=== PATIENT | female | born 2000 | race Caucasian/White ===

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

== ENCOUNTER 2022-10-22 08:13 | Emergency (ER) | payer BC ==
[2022-10-22 08:24] VITALS: BMI 17.4
[2022-10-22] MEDS ORDERED: SODIUM CHLORIDE 1,000 ML IV STA (08:36)
[2022-10-22 09:31] LABS: BASO % 0.3 % (0-2.0); EOS % 3.1 % (0-4.5); HEMATOCRIT 38.7 % (32.4-45.2); HEMOGLOBIN 13.4 GM/dL (10.7-15.3); LYMPH % 30.7 % (8-40); MCH 32.5 pg (25.7-33.7); MCHC 34.6 g/dl (32.0-36.0); MEAN CELL VOLUME 93.9 fl (80-96); MONO % 7.4 % (3.8-10.2); NEUT % 58.5 % (42.8-82.8); PLATELET COUNT 265 10^3/uL (134-434); RBC 4.12 M/mm3 (3.60-5.2); RDW 12.8 % (11.6-15.6); WHITE BLOOD COUNT 6.5 K/mm3 (4.0-10.0)
[2022-10-22 09:35] LABS: ALBUMIN 3.9 g/dl (3.4-5.0); BLOOD UREA NITROGEN 13.7 mg/dL (7-18); CALCIUM 9.2 mg/dL (8.5-10.1)
[2022-10-22 09:38] LABS: CREATININE 0.6 mg/dL (0.55-1.3)
[2022-10-22 09:40] LABS: BILIRUBIN,TOTAL 0.7 mg/dL (0.2-1); TOT PROT 7.2 g/dl (6.4-8.2)
[2022-10-22 13:15] LABS: PH,URINE 5.5 (5.0-8.0); URINE APPEARANCE CLOUDY; URINE BILIRUBIN NEGATIVE (NEGATIVE); URINE COLOR YELLOW; URINE GLUCOSE (UA) NEGATIVE (NEGATIVE); URINE KETONE TRACE (NEGATIVE); URINE LEUK ESTERASE NEGATIVE (NEGATIVE); URINE NITRITE NEGATIVE (NEGATIVE); URINE PROTEIN NEGATIVE (NEGATIVE); URINE UROBILINOGEN 0.2 mg/dL (0.2-1.0)
[2022-10-22 15:29] VITALS: BP 105/72; PULSE 89; RESP 18; TEMP 98.3
== END 2022-10-22 15:29 | disposition home or self-care (01) ==
LOC: JER 08:13
PROC: 3E0337Z Introduction of Electrolytic and Water Balance Substance into Peripheral Vein, Percutaneous Approach (ICD-10-PCS; principal; 2022-10-22)
DX: R10.32 Left lower quadrant pain (principal); N83.292 Other ovarian cyst, left side; R11.0 Nausea
CPT/HCPCS: 36415; 74177-TC; 76830-TC; 80053; 81003; 83690; 84703; 85025; 87086; 99285-25; Q9967

== ENCOUNTER 2022-11-13 18:18 | Emergency (ER) | payer BC ==
[2022-11-13 18:32] VITALS: TEMP 97.9; BMI 17.4
[2022-11-13] MEDS ORDERED: ACETAMINOPHEN 1000 MG/100 ML BAG IVPB ONE (19:30)
[2022-11-13] MEDS ORDERED: ACETAMINOPHEN INJECTION 100 ML IVPB ONE (19:45)
[2022-11-13 20:16] LABS: BASO % 0.7 % (0-2.0); EOS % 9.2 % (0-4.5); HEMATOCRIT 37.4 % (32.4-45.2); HEMOGLOBIN 13.1 GM/dL (10.7-15.3); LYMPH % 38.1 % (8-40); MCH 32.7 pg (25.7-33.7); MCHC 35.1 g/dl (32.0-36.0); MEAN CELL VOLUME 93.1 fl (80-96); MONO % 8.3 % (3.8-10.2); NEUT % 43.7 % (42.8-82.8); PLATELET COUNT 310 10^3/uL (134-434); RBC 4.01 M/mm3 (3.60-5.2); RDW 12.8 % (11.6-15.6)
[2022-11-13 20:21] LABS: ALBUMIN 4.2 g/dl (3.4-5.0); BLOOD UREA NITROGEN 14.1 mg/dL (7-18); CALCIUM 9.6 mg/dL (8.5-10.1)
[2022-11-13 20:25] LABS: CREATININE 0.8 mg/dL (0.55-1.3); URINE APPEARANCE CLEAR; URINE BILIRUBIN NEGATIVE (NEGATIVE); URINE COLOR YELLOW; URINE GLUCOSE (UA) NEGATIVE (NEGATIVE); URINE KETONE NEGATIVE (NEGATIVE); URINE LEUK ESTERASE NEGATIVE (NEGATIVE); URINE NITRITE NEGATIVE (NEGATIVE); URINE PROTEIN NEGATIVE (NEGATIVE); URINE UROBILINOGEN 0.2 mg/dL (0.2-1.0)
[2022-11-13 20:26] LABS: BILIRUBIN,TOTAL 0.4 mg/dL (0.2-1); TOT PROT 7.8 g/dl (6.4-8.2)
[2022-11-13] MEDS ORDERED: FLUCONAZOLE 150 MG TABLET PO ONE ×2 (20:50→21:41)
[2022-11-13 21:56] VITALS: BP 144/68; PULSE 86; RESP 19
== END 2022-11-13 22:44 | disposition home or self-care (01) ==
LOC: JER 18:18
PROC: 3E033GC Introduction of Other Therapeutic Substance into Peripheral Vein, Percutaneous Approach (ICD-10-PCS; principal; 2022-11-13)
DX: R10.32 Left lower quadrant pain (principal); R10.31 Right lower quadrant pain; R10.2 Pelvic and perineal pain; R50.9 Fever, unspecified; R19.7 Diarrhea, unspecified; B37.31 Acute candidiasis of vulva and vagina; Z20.822 Contact with and (suspected) exposure to COVID-19
CPT/HCPCS: 0241U-QW; 36415; 76830-TC; 76856-TC; 80053; 81003; 84703; 85025; 87086; 99284-25

== ENCOUNTER 2023-02-09 12:45 | Emergency (ER) | payer BC ==
[2023-02-09 12:55] VITALS: BP 99/60; PULSE 89; RESP 18; TEMP 97.8; BMI 19.1
[2023-02-09 13:44] LABS: HCG,QUALITATIVE URINE Negative
[2023-02-09 14:04] LABS: EPITHELIAL CELLS FEW /hpf
[2023-02-09 16:13] LABS: HEMATOCRIT 39.2 % (32.4-45.2); HEMOGLOBIN 13.3 G/dL (10.7-15.3); MCHC 33.8 g/dl (32.0-36.0); MEAN CELL VOLUME 97.4 fl (80-96); MEAN PLT VOLUME 8.1 fl (7.5-11.1); PLATELET COUNT 265.8 10^3/uL (134-434); RBC 4.02 10^6/uL (3.60-5.2); RDW 13.1 % (11.6-15.6); WHITE BLOOD COUNT 5.6 10^3/uL (4.0-10.8)
[2023-02-09 16:37] LABS: ALBUMIN 4.6 g/dl (3.4-5.0); BILIRUBIN,TOTAL 0.5 mg/dl (0.2-1); BLOOD UREA NITROGEN 10.2 mg/dl (7-18); CALCIUM 9.9 mg/dl (8.5-10.1); CREATININE 0.6 mg/dl (0.6-1.3); POTASSIUM 4.1 mmol/L (3.5-5.1); SGOT/AST 14.8 U/L (15-37); SGPT/ALT 6.5 U/L (7-52); TOT PROT 7.4 g/dl (6.4-8.2)
[2023-02-09 16:55] LABS: PLATELET ESTIMATE ADEQUATE
== END 2023-02-09 18:55 | disposition home or self-care (01) ==
LOC: FER 12:45
DX: R10.31 Right lower quadrant pain (principal); K52.9 Noninfective gastroenteritis and colitis, unspecified; N83.202 Unspecified ovarian cyst, left side
CPT/HCPCS: 36415; 74177-TC; 76830-TC; 76856-TC; 80053; 81003; 81015; 84703; 85027; Q9967

== ENCOUNTER 2023-05-10 21:44 | Emergency (ER) | payer BC ==
[2023-05-10 22:01] VITALS: BP 108/73; PULSE 91; RESP 19; TEMP 98.5; BMI 17.4
[2023-05-10 22:38] LABS: HEMATOCRIT 38.3 % (32.4-45.2); MCH 32.9 pg (25.7-33.7); MEAN CELL VOLUME 96.7 fl (80-96); MEAN PLT VOLUME 8.1 fl (7.5-11.1); PLATELET COUNT 257.9 10^3/uL (134-434); RBC 3.96 10^6/uL (3.60-5.2); WHITE BLOOD COUNT 8.1 10^3/uL (4.0-10.8)
[2023-05-11 01:01] LABS: CHLORIDE 108 mmol/L (98-107); POTASSIUM 4.4 mmol/L (3.5-5.1); SODIUM 141 mmol/L (136-145)
[2023-05-11 01:03] LABS: CALCIUM 8.7 mg/dL (8.5-10.1)
[2023-05-11 01:04] LABS: ANION GAP 8 MMOL/L (8-16); BLOOD UREA NITROGEN 13.5 mg/dL (7-18); CO2 24 mmol/L (21-32); GLUCOSE,RANDOM 89 mg/dL (74-106)
[2023-05-11 01:07] LABS: CREATININE 0.7 mg/dL (0.55-1.3); SGPT/ALT 12 U/L (13-61)
[2023-05-11 01:08] LABS: BILIRUBIN,TOTAL 0.3 mg/dL (0.2-1); SGOT/AST 12 U/L (15-37); TOT PROT 7.7 g/dl (6.4-8.2)
[2023-05-11 01:10] LABS: ALK PHOS 59 U/L (45-117)
== END 2023-05-11 01:29 | disposition home or self-care (01) ==
LOC: FER 21:44
DX: R07.89 Other chest pain (principal)
CPT/HCPCS: 36415; 71046-TC-FY; 80053; 81025; 84484; 85027; 93005; 99285-25

== ENCOUNTER 2024-08-06 14:52 | Emergency (ER) | payer BC ==
[2024-08-06 15:28] VITALS: BP 112/74; PULSE 97; RESP 18; TEMP 97.5; BMI 17.9
[2024-08-06] MEDS ORDERED: ACETAMINOPHEN 325 MG TABLET (FP) ONE (15:40)
[2024-08-06] MEDS: SODIUM CHLORIDE 0.9% 1000 ML INFUS.BAG IV ONE (15:45)
[2024-08-06] MEDS: ACETAMINOPHEN 500 MG TABLET (FP) PO ONE (15:45)
[2024-08-06 15:48] LABS: HEMATOCRIT 43.9 % (32.4-45.2); HEMOGLOBIN 14.9 G/dL (10.7-15.3); MCHC 33.9 g/dl (32.0-36.0); MEAN CELL VOLUME 97.4 fl (80-96); MEAN PLT VOLUME 8.6 fl (7.5-11.1); PLATELET COUNT 315.7 10^3/uL (134-434); RBC 4.51 10^6/uL (3.60-5.2); RDW 12.6 % (11.6-15.6); WHITE BLOOD COUNT 8.6 10^3/uL (4.0-10.8)
[2024-08-06 16:25] LABS: ALBUMIN 4.8 g/dl (3.4-5.0); ALK PHOS 54 U/L (45-117); ANION GAP 10 mmol/L (4-13); BILIRUBIN,TOTAL 0.7 mg/dl (0.2-1); CHLORIDE 102 mmol/L (98-107); CO2 25 mmol/L (21-32); CREATININE 0.7 mg/dl (0.6-1.3); GLUCOSE,RANDOM 72 mg/dl (74-106); MAGNESIUM 1.8 mg/dL (1.8-2.4); SGOT/AST 17 U/L (15-37); SGPT/ALT 14 U/L (7-52); SODIUM 137 mmol/L (136-145); TOT PROT 7.6 g/dl (6.4-8.2)
[2024-08-06 16:57] LABS: PLATELET ESTIMATE ADEQUATE
[2024-08-06 17:44] LABS: EPITHELIAL CELLS 21-50 /hpf
== END 2024-08-06 17:10 | disposition home or self-care (01) ==
LOC: FER 14:52
DX: R55 Syncope and collapse (principal); R42 Dizziness and giddiness; Z20.822 Contact with and (suspected) exposure to COVID-19
CPT/HCPCS: 0241U-QW; 36415; 80053; 81003; 81015; 82962; 83735; 84484; 84703; 85027; 87086; 93005; 99284-25